=== PATIENT | female | born 1945 | race Caucasian/White ===

== ENCOUNTER → 2016-11-21 | Outpatient (CLI) | payer OTHER ==
[~2016-11-21] MED LIST: LEVO100T PO
== END | disposition home or self-care (01) ==
LOC: CFH 13:23
PROVIDERS: ATTEND Nurse Practitioner
DX: Z12.31 Encounter for screening mammogram for malignant neoplasm of breast (principal); M85.88 Other specified disorders of bone density and structure, other site
CPT/HCPCS: 77063; 77080; G0202

== ENCOUNTER 2019-08-16 09:37 | Emergency (ER) | payer MEDICARE, OTHER ==
[~2019-08-16] VITALS: Ht 157.5 cm; Wt 59.9 kg
--- NOTE | 2019-08-16 12:15 | NUR ---
ASSUMED CARE OF PT AT THIS TIME. PT CURRENTLY SITTING ON [facility]. NO ACUTE DISTRESS NOTED. PT REPORTS THAT DR. PLATA "EXPLAINED EVERYTING REALLY WELL" AND PT HAS PLANS FOR F/U WITH PCP [facility] TOMORROW. PT AO X 4. SKIN PWD. RESP EVEN AND UNLABORED. PT DENIES NEEDS FOR PAIN MEDICATION. PT AWARE WE ARE WAITING FOR DC PAPERWORK.
[2019-08-16 12:34] VITALS: BP 118/61
== END 2019-08-16 12:36 | disposition home or self-care (01) ==
LOC: ED 10:08
DX: S16.1XXA Strain of muscle, fascia and tendon at neck level, initial encounter (principal); S09.90XA Unspecified injury of head, initial encounter; W01.0XXA Fall on same level from slipping, tripping and stumbling without subsequent striking against object, initial encounter; Y93.89 Activity, other specified; Y92.89 Other specified places as the place of occurrence of the external cause; Y99.8 Other external cause status
CPT/HCPCS: 70450; 72125; 99285

== ENCOUNTER → 2019-09-10 | Outpatient (CLI) | payer MEDICARE | END | disposition home or self-care (01) | LOC: CFH 10:19 | PROVIDERS: ATTEND Family Medicine | DX: Z12.31 Encounter for screening mammogram for malignant neoplasm of breast (principal) | CPT/HCPCS: 77063; 77067 ==

== ENCOUNTER 2020-08-01 17:38 | Emergency (ER) | payer MEDICARE ==
[~2020-08-01] VITALS: Ht 157.5 cm; Wt 60.5 kg
--- NOTE | 2020-08-01 17:55 | NUR ---
PT AMBULATORY TO ROOM FROM TRIAGE, PT CHANGED INTO GOWN. MONITORS IN PLACE. PT C/O VB STARTING TODAY AROUND 1600. PT STATED SHE FELT BLOATING & CRAMPING AT 1300. PT DENIES ANY DIZZINESS/RED OR ANY PAIN. CALL LIGHT WITHIN REACH. FAMILY AT BS
--- NOTE | 2020-08-01 18:42 | NUR ---
PT TO US
--- NOTE | 2020-08-01 18:50 | NUR ---
PT BACK FROM US. REPORT TO WEN MACIAS
--- NOTE | 2020-08-01 18:54 | NUR ---
REPORT FROM KATELYNN RN
[2020-08-01 19:22] LABS: BASOPHILS % (AUTO) 1 % (0-1); EOSINOPHILS % (AUTO) 4 % (1-7); LYMPHOCYTES % (AUTO) 37 % (22-44); MEAN CORPUSCULAR HEMOGLOBIN 30.6 pg (27.0-34.8); MEAN CORPUSCULAR HGB CONC 34.1 g/dL (32.4-35.8); MEAN PLATELET VOLUME 9.6 fL (7.4-10.4); MONOCYTES % (AUTO) 10 % (2-9); NEUTROPHILS % (AUTO) 49 % (42-75); PLATELET COUNT 153 x10^3/uL (130-400); RED BLOOD COUNT 4.25 x10^6/uL (3.82-5.3); RED CELL DISTRIBUTION WIDTH 12.7 % (9.6-15.2)
[2020-08-01 19:31] LABS: ALBUMIN 3.4 g/dL (3.4-5.0); ANION GAP 5 mmol/L (5-15); CALCIUM 8.7 mg/dL (8.5-10.1); CHLORIDE 112 mmol/L (98-107); CREATININE 0.75 mg/dL (0.55-1.02)
[2020-08-01 20:26] VITALS: BP 118/48
--- NOTE | 2020-08-01 20:26 | NUR ---
PT AMBULATORY WITH STEADY GAIT TO RESTROOM
== END 2020-08-01 20:48 | disposition home or self-care (01) ==
LOC: ED 20:45
DX: N95.0 Postmenopausal bleeding (principal)
CPT/HCPCS: 36415; 76830; 80048; 82040; 82378; 85025; 99284

== ENCOUNTER → 2020-09-17 | Outpatient (CLI) | payer MEDICARE | END | disposition home or self-care (01) | LOC: CFH 10:20 | PROVIDERS: ATTEND Specialist | DX: Z12.31 Encounter for screening mammogram for malignant neoplasm of breast (principal) | CPT/HCPCS: 77063; 77067 ==